=== PATIENT | male | born 1950 | race Caucasian/White ===

== ENCOUNTER 2022-04-05 19:17 | Observation (INO) ==
[2022-04-05] MEDS ORDERED: Iopamidol - 370 500 ML MLS IVP ONE (19:35)
[2022-04-05 20:33] LABS: Basophils # 0.1 K/mcL (0.0-0.2); Basophils % 0.4 %; Eosinophils % 0.2 %; Immature Granulocytes % 1.2 % (0-4); Lymphocytes # 1.1 K/mcL (0.6-4.6); Lymphocytes % 5.5 %; Mean Corpuscular HGB Conc 32.5 g/dL (31.6-35.5); Mean Corpuscular Hemoglobin 32.3 pg (28.0-33.3); Mean Corpuscular Volume 99.3 fL (83.0-100.0); Mean Platelet Volume 9.9 fL (9.4-12.4); Monocytes # 1.5 K/mcL (0.0-1.3); Monocytes % 7.8 %; Neutrophils # 16.5 K/mcL (1.6-8.9); Platelet Count 258 K/mcL (140-400); Red Blood Count 4.03 M/mcL (4.19-5.50); Red Cell Distribution Width 13.7 % (11.5-14.5); Segmented Neutrophils % 84.9 %; White Blood Count 19.5 K/mcL (4.3-11.1)
[2022-04-05] MEDS ORDERED: cefTRIAXone 1,000 MG in 0.9 % Sodium Chloride 10 ML IVP ONE (21:03)
[2022-04-05] MEDS ORDERED: Azithromycin 500 MG in 0.9 % Sodium Chloride 250 ML IVPB ONE (21:03)
[2022-04-05 21:12] LABS: Albumin 3.6 g/dL (3.5-5.7); Albumin/Globulin Ratio 1.3 (1.1-2.2); Bilirubin,Direct 0.3 mg/dL (0.0-0.2); Bilirubin,Indirect 0.9 mg/dL (0.0-1.0); Bilirubin,Total 1.2 mg/dL (0.3-1.0); Calcium 8.8 mg/dL (8.6-10.3); Globulin 2.8 g/dL (2.4-3.5); Potassium 3.9 mEq/L (3.5-5.1); Total Protein 6.4 g/dL (6.4-8.9); Troponin I 0.03 ng/mL (< 0.04)
[2022-04-05] MEDS ORDERED: Morphine Sulfate 2 MG/ML SYRINGE IVP PRN (23:05)
[2022-04-06] MEDS ORDERED: Ondansetron 4 MG/2 ML VIAL IVP PRN (00:23)
[2022-04-06] MEDS ORDERED: Naloxone 0.4 MG/ML INJ IVP PRN (00:23)
[2022-04-06] MEDS: Acetaminophen 325 MG TABLET PO PRN ×3 (02:36→21:40)
[2022-04-06] MEDS ORDERED: Ipratropium/Albuterol Neb 3 ML IH PRN (02:54)
[2022-04-06] MEDS ORDERED: 0.9 % Sodium Chloride 500 ML IVC PRN (02:58)
[2022-04-06] MEDS ORDERED: Azithromycin 500 MG in 0.9 % Sodium Chloride 250 ML IVPB SCH ×2 (03:00→18:00)
[2022-04-06 03:11] LABS: Bilirubin,Urine Negative (Negative); Blood,Urine Negative (Negative); Clarity,Urine Clear (Clear); Color,Urine Colorless (Yellow); Glucose,Urine (UA) Normal (Normal); Ketones,Urine 10 mg/dL (Negative); Leukocyte Esterase,Urine Negative (Negative); Nitrite,Urine Negative (Negative); Protein,Urine Trace mg/dL (Neg-Trace); Specific Gravity,Urine > 1.030 (1.010-1.025); Urobilinogen,Urine Normal (Normal)
[2022-04-06 03:31] LABS: Basophils # 0.1 K/mcL (0.0-0.2); Basophils % 0.4 %; Eosinophils % 0.2 %; Hematocrit 38.1 % (37.5-50.1); Hemoglobin 12.8 g/dL (12.9-16.9); Immature Granulocytes % 1.6 % (0-4); Lymphocytes # 1.1 K/mcL (0.6-4.6); Lymphocytes % 5.7 %; Mean Corpuscular HGB Conc 33.6 g/dL (31.6-35.5); Mean Corpuscular Hemoglobin 32.8 pg (28.0-33.3); Mean Corpuscular Volume 97.7 fL (83.0-100.0); Mean Platelet Volume 9.7 fL (9.4-12.4); Monocytes # 1.5 K/mcL (0.0-1.3); Monocytes % 7.9 %; Platelet Count 241 K/mcL (140-400); Red Cell Distribution Width 13.9 % (11.5-14.5); Segmented Neutrophils % 84.2 %
[2022-04-06 03:50] LABS: Calcium 8.9 mg/dL (8.6-10.3); Chol/HDL Ratio 1.6 (0-4.9); Magnesium 1.5 mg/dL (1.6-2.6); Phosphorous 3.2 mg/dL (2.7-4.5); Potassium 3.9 mEq/L (3.5-5.1); Troponin I 0.03 ng/mL (< 0.04)
[2022-04-06 03:51] LABS: INR 1.3; Prothrombin Time 14.6 Seconds (9.4-12.1)
[2022-04-06 07:10] LABS: Adenovirus Not Detected (Not Detect); Coronavirus 229E Not Detected (Not Detect); Coronavirus HKU1 Not Detected (Not Detect); Coronavirus NL63 Not Detected (Not Detect); Coronavirus OC43 Not Detected (Not Detect); Human Metapneumovirus Not Detected (Not Detect); Human Rhinovirus/Enterovirus Not Detected (Not Detect); SARS-CoV-2 Not Detected (Not Detect)
[2022-04-06 07:11] LABS: Bordetella Pertussis Not Detected (Not Detect); Chlamydophila pneumoniae Not Detected (Not Detect); Influenza A Subtype 2009 H1 Not Detected (Not Detect); Influenza B Not Detected (Not Detect); Mycoplasma pneumoniae Not Detected (Not Detect); Parainfluenza Virus 1 Not Detected (Not Detect); Parainfluenza Virus 2 Not Detected (Not Detect); Parainfluenza Virus 3 Not Detected (Not Detect); Parainfluenza Virus 4 Not Detected (Not Detect); Respiratory Syncytial Virus Not Detected (Not Detect)
[2022-04-06] MEDS ORDERED: METOPROLOL HCTZ PO SCH (09:00)
[2022-04-06] MEDS: Metoprolol XL (24 HR) Succ 50 MG TAB.ER.24H PO SCH (09:07)
[2022-04-06] MEDS: Colchicine 0.6 MG TABLET PO SCH (09:09)
[2022-04-06] MEDS: Aspirin Enteric Coated 81 MG Tablet PO SCH (09:09)
[2022-04-06] MEDS: hydroCHLOROthiazide 25 MG TABLET PO SCH (09:09)
[2022-04-06] MEDS: allopurinoL 300 MG TABLET PO SCH (09:09)
[2022-04-06] MEDS: lisinopriL 5 MG TABLET PO SCH (09:10)
[2022-04-06] MEDS: *HR* Enoxaparin 40 MG/0.4 ML SYRINGE SQ SCH (09:11)
[2022-04-06] MEDS: cefTRIAXone 1,000 MG in 0.9 % Sodium Chloride Mini Bag 100 ML IVPB SCH (10:35)
[2022-04-06] MEDS: MetroNIDAZOLE 500 MG/100 ML 500 MG/100 ML BAG IVPB SCH (16:28)
[2022-04-07] MEDS: MetroNIDAZOLE 500 MG/100 ML 500 MG/100 ML BAG IVPB SCH ×2 (00:43→09:11)
[2022-04-07 03:46] LABS: Basophils # 0.1 K/mcL (0.0-0.2); Basophils % 0.6 %; Eosinophils # 0.2 K/mcL (0.0-0.6); Eosinophils % 1.6 %; Hematocrit 37.4 % (37.5-50.1); Hemoglobin 12.5 g/dL (12.9-16.9); Lymphocytes # 1.5 K/mcL (0.6-4.6); Lymphocytes % 11.3 %; Mean Corpuscular HGB Conc 33.4 g/dL (31.6-35.5); Mean Corpuscular Hemoglobin 32.8 pg (28.0-33.3); Mean Corpuscular Volume 98.2 fL (83.0-100.0); Mean Platelet Volume 9.9 fL (9.4-12.4); Monocytes % 7.8 %; Neutrophils # 10.1 K/mcL (1.6-8.9); Platelet Count 283 K/mcL (140-400); Red Blood Count 3.81 M/mcL (4.19-5.50); Red Cell Distribution Width 13.7 % (11.5-14.5); Segmented Neutrophils % 77.7 %
[2022-04-07 03:51] LABS: Calcium 9.2 mg/dL (8.6-10.3); Magnesium 2.2 mg/dL (1.6-2.6); Potassium 3.9 mEq/L (3.5-5.1)
[2022-04-07] MEDS: lisinopriL 5 MG TABLET PO SCH (09:05)
[2022-04-07] MEDS: Colchicine 0.6 MG TABLET PO SCH (09:05)
[2022-04-07] MEDS: Metoprolol XL (24 HR) Succ 50 MG TAB.ER.24H PO SCH (09:06)
[2022-04-07] MEDS: allopurinoL 300 MG TABLET PO SCH (09:07)
[2022-04-07] MEDS: hydroCHLOROthiazide 25 MG TABLET PO SCH (09:07)
[2022-04-07] MEDS: Aspirin Enteric Coated 81 MG Tablet PO SCH (09:07)
[2022-04-07] MEDS: cefTRIAXone 1,000 MG in 0.9 % Sodium Chloride Mini Bag 100 ML IVPB SCH (09:13)
[2022-04-07] MEDS: *HR* Enoxaparin 40 MG/0.4 ML SYRINGE SQ SCH (09:15)
[2022-04-07 13:02] VITALS: BP 112/74; PULSE 92; TEMP 98.8; O2SAT 91
== END 2022-04-07 14:50 | disposition home or self-care (01) ==
LOC: 2NENU 19:17 → EMEROOARM 19:17 → 2NENU 04-06 02:10
PROVIDERS: ADMIT Internal Medicine; ATTEND Internal Medicine